=== PATIENT | female | born 1955 | race Caucasian/White ===

== ENCOUNTER 2017-11-01 21:51 | Inpatient (IN) | payer OTHER ==
[~2017-11-01] VITALS: Ht 157.5 cm; Wt 65.3 kg
[~2017-11-01 21:51] MED LIST: ALLERGY10 M1 PO; ASPIRIN81 M2 PO; ATIVAN0.5 MG PO; AUGMENTIN 875875 MG PO; CELEXA40 MG PO; ELEMENTAL CALC600 MG PO; FOLIC ACID1 MG PO; KEFLEX500 MG PO; LASIX 20 MG TAB20 MG PO; LORAZEPAM 1 MG T1 M1 PO; LOVASTATIN 20 M20 MG PO; OXYCODONE HCL 55 MG PO; POTASSIUM20 PO; PROBIOTIC1 EAC4 PO; PROTONIX40 M2 PO; TRAMADOL 50 MG50 MG PO; VITAMIN B-1100 M1 PO; WELLBUTRIN 75 M75 M1; WELLBUTRIN XL150 M1 PO
[2017-11-01 21:52] VITALS: BP 130/67
[2017-11-01] MEDS ORDERED: PROAIR HFA8.5 GM INH (22:01)
[2017-11-01 22:27] LABS: ABSOLUTE BASOPHILS 0.1 thou/uL (0.0-0.2); ABSOLUTE EOSINOPHILS 0.1 thou/uL (0.0-0.7); ABSOLUTE LYMPHOCYTES 4.5 thou/uL (0.8-5.3); ABSOLUTE MONOCYTES 0.5 thou/uL (0.0-1.2); ABSOLUTE NEUTROPHILS 2.7 thou/uL (1.6-8.1); BASOPHILS 0.7 %; HEMATOCRIT 49.5 % (37.0-47.0); HEMOGLOBIN 16.8 gm/dL (12.0-15.0); LYMPHOCYTES 56.6 %; MCH 37.5 pg (26.0-34.0); MCV 110.2 fL (80.0-100.0); MONOCYTES 6.9 %; MPV 10.4 fl. (7.2-11.1); NUCLEATED RBCS 0 /100WBC; PLATELET COUNT* 199 thou/uL (150-400); POLYS 34.8 %; RBC 4.49 mil/uL (4.20-5.00); RDW-CV 12.6 % (10.5-14.5); WBC 7.9 thou/uL (4.0-11.0)
[2017-11-01 22:30] LABS: ANION GAP 9 mmol/L (7-16); BUN 10 mg/dL (7-18); CALCIUM 8.6 mg/dL (8.5-10.1); CHLORIDE 105 mmol/L (98-107); CO2 30 mmol/L (21-32); CREATININE 0.9 mg/dL (0.6-1.3); GLUCOSE 124 mg/dL (70-99); POTASSIUM 4.1 mmol/L (3.5-5.1); SODIUM 144 mmol/L (136-145)
[2017-11-01 22:41] LABS: ALBUMIN 2.8 g/dL (3.4-5.0); ALKALINE PHOSPHATASE 135 U/L (46-116); LIPASE 378 U/L (73-393); MAGNESIUM 1.9 mg/dL (1.8-2.4); NT-PRO BRAIN NAT PEPTIDE 191 pg/mL (<300); SGOT 81 U/L (15-37); SGPT 63 U/L (30-65); TOTAL BILIRUBIN 0.1 mg/dL (<0.1-1.0); TOTAL PROTEIN 6.3 g/dL (6.4-8.2); TROPONIN-I LEVEL <0.06 ng/mL (<0.06)
[2017-11-01 22:52] LABS: PLATELET ESTIMATE ADEQUATE
[2017-11-01 22:52] LABS: BE 5.1 mmol/L (-2 to +3); HCO3 28.1 mmol/L (22.0-26.0); PCO2 36.4 mmHg (35.0-45.0); PO2 405.1 mmHg (75.0-100.0); pH 7.505 (7.340-7.450)
[2017-11-01 22:53] LABS: MACROCYTES 2+
[2017-11-02 02:40] VITALS: BP 118/74
[2017-11-02 02:58] VITALS: BP 116/76
[2017-11-02 03:30] LABS: URINE BILIRUBIN NEGATIVE (Negative); URINE BLOOD NEGATIVE (Negative); URINE CLARITY CLEAR; URINE COLOR YELLOW; URINE GLUCOSE-RANDOM NEGATIVE (Negative); URINE KETONES NEGATIVE (Negative); URINE LEUKOCYTES-REFLEX TRACE (Negative); URINE PROTEIN NEGATIVE (Negative); URINE UROBILINOGEN 0.2 E.U./dl (0.2-1.0)
[2017-11-02 03:37] LABS: URINE NITRITE-REFLEX POSITIVE (Negative)
[2017-11-02 03:38] LABS: AMP/METHAMP Negative (Negative); BARBITURATES Negative (Negative); BENZODIAZEPINES Negative (Negative); COCAINE Negative (Negative); HYALINE CASTS 0-3 Few /LPF (None Seen); METHADONE Negative (Negative); OPIATES Negative (Negative); PCP Negative (Negative); SQUAMOUS 4-10 Moderate /LPF (0-3); THC Negative (Negative)
[2017-11-02 03:39] LABS: BACTERIA-REFLEX >30 Many /HPF (None Seen); CRYSTALS None Seen /LPF (None Seen); URINE RBC None Seen /HPF (0-2); URINE WBC-REFLEX 6-15 Few /HPF (0-5)
--- NOTE | 2017-11-02 04:25 | NUR ---
ASSUMED CARE OF PT AT 0255. PT IS INTOXICATED. VSS. PERRLA. CIWA IS 0. NO COMPLAINTS OF PAIN. PT IS IN SINUS RYTHM ON THE TELEMETRY. PT IS RESTING COMFORTABLY IN BED. RESPIRATIONS ARE EVEN AND NONLABORED. WILL CONTINUE TO MONITOR PT.
[2017-11-02 08:30] VITALS: BP 136/90
--- NOTE | 2017-11-02 08:30 | NUR ---
ASSUMED PT. CARE AND RECEIVED REPORT AT 0730. PT A/OX4, VSS, MONITOR ON TRACING SR. PT. DENIES CURRENT PAIN WITH EXCEPTION OF HEADACHE. CIWAL SCORE OF 11 THIS MORNING DUE TO HEADACHE, VISIABLE TREMORS AND PT. REPORTS HALLUCINATING. ON 2L NC @ 99%, C/O SOA WITH ACTIVITY. FULL ASSESSMENT COMPLETED, REFER TO CHARTING. BANANA BAG INFUSING AT 100ML/HR TO RIGHT FOREARM. FULL ASSESSMENT COMPLETED, REFER TO CHARTING. CALL PRECAUTIONS IN PLACE, WILL CONTINUE WITH PLAN OF CARE.
[2017-11-02] MEDS ORDERED: PROBIOTIC1 EAC1 PO (09:02)
[2017-11-02 09:45] LABS: PROTIME 10.1 Seconds (9.20-11.50)
[2017-11-02 11:55] VITALS: BP 126/86
--- NOTE | 2017-11-02 14:12 | NUR ---
MET WITH PT AND SPOUSE TO DISCUSS HOME SITUATION/DC PLANNING. PT LIVES WITH SPOUSE AND 2 GRANDSONS, 17 AND 20. SHE IS INDEPENDENT AND ACTIVE. USES TOILET RISER. HAD STAY ON INPT REHAB LAST FALL, STATES DIDN'T F/U WITH OUTPT THERAPY AFTER. PT AND SPOUSE DENY ANY DC NEEDS. SHE DID ASK ABOUT GETTING A NEBULZIER, ENCOURAGED HER TO DISCUSS WITH DR. BARBRA ARZATE
[2017-11-02 15:36] VITALS: BP 132/92
--- NOTE | 2017-11-02 17:52 | EKG ---
[place] [address] ELECTROCARDIOGRAM REPORT Name: GANGA OLSON Room: [address] ADM IN M.R.#: [id number] Admission: 11/01/17 Attend Phys: Nohelia Thomas MD Discharge: Date of : 51 Report #: [id number] THIS REPORT FOR: //name// [facility] ED Test Date: 2017-11-01 Test Time: 22:00:42 Pat Name: GANGA OLSON Department: Room: [facility] Gender: F Heel Layer: : 1955 Requested By: Wayne Perez Order Number: [id number] MD: Brad Hernandez Measurements Intervals [place] Rate: 80 P: 68 VT: 185 QRS: 50 QRSD: 129 T: 70 QT: 404 QTc: 466 Interpretive Statements Sinus rhythm Baseline artifact noted Compared to ECG 09/10/2016 12:42:13 No significant changes noted Electronically Signed On 11-02-2017 17:52:44 CDT by Brad Hernandez [email or web address] <ELECTRONICALLY SIGNED> By: Brad Hernandez MD, [facility] 11/02/17 175 [id number] 99 Brad Hernandez MD, FAC /EPI
--- NOTE | 2017-11-02 19:48 | NUR ---
PT. STABLE THROUGH OUT SHIFT. CIWA SCORE 11 X3 TODAY. PT. TREATED WITH PO ATIVAN, TOLERATED WELL. HEADACHE TREATED WITH TYLENOL WITH PARTIAL RELIEF. PT. CAN BE IMPULSIVE AT TIMES, HOWEVER GENERALLY USES CALL LIGHT FOR ASSISTANCE AND ABLE TO STATE NEEDS. PT. INTO VISIT, APPEARS SUPPORTIVE OF PT AT THIS TIME. HOURLY ROUNDING COMPLETED THROUGH OUT THE DAY FOR PT. SAFETY.
[2017-11-02 20:00] VITALS: BP 149/100
--- NOTE | 2017-11-02 23:32 | NUR ---
PT ALERT CONFUSED CIWA LAST SCORE 27. PT GETTING OOB APPROX Q 10 MIN. ATTEMPTING TO REMOVE IV STATING IT WAS POKING HER. PT HAVING VISUAL AND AUDITORY HALLUCINATIONS. CRYING AND FEARFUL AT TIMES. TELEMETRY SHOWS SR. O2 AT 2 LITERS NC. D51/2 NS AT 100 ML. CHARGE NURSE AND HOUSE SUPP NOTIFIED. DR LARSEN NOTIFIED. PT TRANSFERED TO ICU FOR CIWA SCORE >26. IV ATIVAN GIVEN Q HR.
[2017-11-03] VITALS (17 sets, daily range): BP systolic 89–146; BP diastolic 45–93
--- NOTE | 2017-11-03 00:35 | NUR ---
PT TRANSFERED TO ICU 6. BELONGINGS WITH PT. REPORT CALLED TO RN. TELEMETRY SHOWS ST 110.
--- NOTE | 2017-11-03 06:00 | NUR ---
PATIENT SLOWLY PROGRESSING. TRANSFERED TO ICU FROM TELE @ 0140. CIWA WAS 26. PT HAVING HALLUCINATIONS CONSISTENTLY WAS TRYING TO GET OUT OF BED. HAD TO CALL SECURITY TWICE D/T PT BECOMING COMBATIVE. CALLED DR. LARSEN RECIEVED ORDERS FOR HALDOL Q4H. AFTER ADMINISTERED PT FELL ASLEEP AND HAS REMAIND ASLEEP SINCE. PT CIWA NOW IS 9 BUT ONLY B/C SHE IS SLEEPING. WILL CONTINUE TO MONITOR CLOSELY.
[2017-11-03 08:05] LABS: HEMOGLOBIN 14.9 gm/dL (12.0-15.0); MCH 37.4 pg (26.0-34.0); MCHC 33.9 g/dL (28.0-37.0); MCV 110.5 fL (80.0-100.0); MPV 10.5 fl. (7.2-11.1); NUCLEATED RBCS 0 /100WBC; PLATELET COUNT* 159 thou/uL (150-400); RBC 3.98 mil/uL (4.20-5.00); RDW-CV 12.8 % (10.5-14.5); WBC 7.9 thou/uL (4.0-11.0)
[2017-11-03 08:10] LABS: CALCIUM 8.6 mg/dL (8.5-10.1); CREATININE 0.9 mg/dL (0.6-1.3); MAGNESIUM 2.2 mg/dL (1.8-2.4); POTASSIUM 4.3 mmol/L (3.5-5.1)
--- NOTE | 2017-11-03 09:04 | NUR ---
ASSUMED PT CARE 0730. INITIAL CIWA 4. PT BECAME MORE AWAKE, PICKING AT IV, ATTEMPTING TO GET OUT OF BED, PULLING AT ARGUETA CATHETER, UNABLE TO SIT IN ONE AREA FOR MORE THAN 1 MINUTE. CIWA REASSSED AT 11. AUDITORY HALLUCINATIONS PRESENT, TREMORS. PT ALERT TO PERSON. VSS. AFEBRILE. BLOOD GLUCOSE 191. PT SAT UP IN CHAIR. PT ATE 50% OF BREAKFAST. MEDICATIONS ADMININSTERED PER SEP. POTASSIUM BROKEN IN HALF. PT REFUSED 2ND HALF OF PILL. SPOUSE AT BEDSIDE THIS AM. REPORTS PT HAD "THIS PROBLEM ABOUT A YEAR AGO". WHEN ASKED ABOUT PT'S ALCOHOL INTAKE RESPONSE WAS "APPARENTLY TOO MUCH". SPOUSE REPORTS PT NEEDING DRINK FIRST THING IN AM ON THURSDAY. PT REPORTS DRINKING ABOUT 4-5 SHOTS OF WHISKY FIREBALLS EVERY DAY. SPOUSE REPORTS IT IS "PROBABLY MORE". SPOUSE EXPRESSES CONCERN ABOUT NEEDING HELP WITH AND WONDERING IF REHAB MAY BE SOMETHING PT NEEDS. DISSCUSSED WITH SPOUSE PT'S DPOA, CURRENTLY PT DOES NOT HAVE ONE. CAN CONSIDER MAKING A DPOA WHEN PT ALERT AND COHERENT.
[2017-11-03 09:17] LABS: ABSOLUTE LYMPHOCYTES 0.2 thou/uL (0.8-5.3); ABSOLUTE MONOCYTES 0.2 thou/uL (0.0-1.2); ABSOLUTE NEUTROPHILS 7.6 thou/uL (1.6-8.1); ANISOCYTOSIS 1+; PLATELET ESTIMATE ADEQUATE; POIKILOCYTOSIS 1+
--- NOTE | 2017-11-03 10:00 | NUR ---
INTERDISCIPLINARY ROUNDS: PT TRANSFERRED TO ICU LAST NIGHT FOR ETOH WITHDRAWL. NO FAMILY HERE
--- NOTE | 2017-11-03 17:00 | NUR ---
LESLY'S CHARTED. PT HAS VISIBLE TREMORS. NAUSEA, AND VISUAL HALLUCINATIONS OF ALIENS PT RECEIVING PO ATIVAN. PT FOLLOWING DIRECTIONS THIS EVENING. PT C/O OF HEADACHE. NOTIFIED AND RECEIVED ONE TIME ORDER IBPROFEN. PT UP TO BSC 4 TIMES THIS SHIFT. NO BM. NUTRITION ENCOURAGED. BLOOD GLUCOSE IN 200'S AT LUNCH. NOTIFIED SLIDING SCALED ORDERED. BLOOD GLUCOSE IN 150'S NO INSULIN REQUIRED. PT EATING ABOUT 50% OF MEALS. PT SB HR OF [address] HR OF 104.
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
[2017-11-04] VITALS (10 sets, daily range): BP systolic 96–154; BP diastolic 57–84
[2017-11-04 04:15] LABS: ABSOLUTE LYMPHOCYTES 0.5 thou/uL (0.8-5.3); ABSOLUTE MONOCYTES 0.6 thou/uL (0.0-1.2); ABSOLUTE NEUTROPHILS 11.4 thou/uL (1.6-8.1); BASOPHILS 0.3 %; HEMATOCRIT 45.4 % (37.0-47.0); HEMOGLOBIN 14.8 gm/dL (12.0-15.0); LYMPHOCYTES 3.7 %; MCH 37.3 pg (26.0-34.0); MCHC 32.7 g/dL (28.0-37.0); MCV 114.1 fL (80.0-100.0); MONOCYTES 4.6 %; MPV 10.8 fl. (7.2-11.1); NUCLEATED RBCS 0 /100WBC; PLATELET COUNT* 145 thou/uL (150-400); POLYS 91.4 %; RBC 3.98 mil/uL (4.20-5.00); RDW-CV 12.8 % (10.5-14.5); WBC 12.5 thou/uL (4.0-11.0)
[2017-11-04 04:34] LABS: ALBUMIN 2.4 g/dL (3.4-5.0); CALCIUM 8.6 mg/dL (8.5-10.1); POTASSIUM 4.7 mmol/L (3.5-5.1); TOTAL BILIRUBIN 0.4 mg/dL (<0.1-1.0); TOTAL PROTEIN 5.4 g/dL (6.4-8.2)
--- NOTE | 2017-11-04 05:22 | NUR ---
PT NOT PROGRESSING TOWARD GOALS. PT REFUSES TO WEAR BP CUFF. PT CONTINUES TO MAKE THREATENING STATEMENTS TO NURSING STAFF. PT ABLE TO SLEEP WHEN GIVEN HALDOL, ATIVAN DOES NOT APPEAR TO HELP WITH ANXIETY.
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
--- NOTE | 2017-11-04 11:34 | NUR ---
BILATERAL SOFT LEG RESTRAINTS TAKEN OF AT 0830. BILATERAL SOFT WRIST RESTRAINTS IN PLACE. NUTRITION ENCOURAGED. PT ATE 5% OF BREAKFAST. FLUIDS ENCOURAGED. SITTER IN PLACE. LESLY KERN 18 THIS AM. PRN ATIVAN ADMININSTERED. SPOUSE AT BEDSIDE. PT APPEARS CALMER WITH PT AT BEDSIDE. PT TAKING PO MEDICATIONS.
--- NOTE | 2017-11-04 15:43 | NUR ---
CONSULTED TO PLACE MIDLINE FOR ICU PT WITH POOR IV ACCESS. SPOKE WITH PT AND ABOUT RISK AND BENEFIT. VOICED UNDERSTANDING AND AGREED. LEFT UPPER ARM ASSESSED WITH ULTRASOUND. LEFT BASILIC IDENTIFIED AND MARKED. SINGLE LUMAN POWER MIDLINE PLACED PER HOSPITAL PROTOCOL INCLUDING MAX BARRIER PRECAUTIONS. LINE TRIMMED TO 15CM AND ADVANCED TO 0CM. GOOD BRISK BLOOD RETURN NOTED AND FLUSHED WITH EASE. TOLERATED VERY WELL. PRIMARY NURSING NOTIFIED AND LINE RELEASED FOR USE.
--- NOTE | 2017-11-04 16:01 | NUR ---
WRIST RESTRAINTS TAKEN OFF AT 1348. PT SLEEPING THIS SHIFT. NO APPETITE FOR EATING.
--- NOTE | 2017-11-04 18:00 | NUR ---
PT A/O X'S 4 THIS EVENING. FORGETFUL. SPOUSE AT BEDSIDE. ATIVIAN GIVEN 2 TIMES THIS SHIFT.
[2017-11-05] VITALS (7 sets, daily range): BP systolic 103–143; BP diastolic 65–95
--- NOTE | 2017-11-05 05:06 | NUR ---
REPORT GIVEN TO KIRIT CARLIN. QUESTIONS DENIED. SITTER AT BEDSIDE IS PACKING UP BELONGINGS, AWAITING TRANSFER TO ROOM 201.
--- NOTE | 2017-11-05 05:48 | NUR ---
PT. TRANSFERRED TO ROOM 201 @ 0589.
--- NOTE | 2017-11-05 05:53 | NUR ---
pt transfered up to [facility] 201 from ICU at this time. C/o anxiety. Ativan given per protocol. NSR ON MONITOR. NO OTHER COMPLAINTS. ARGUETA DRAINING ADEQUATE. WILL CONT TO MONITOR.
--- NOTE | 2017-11-05 12:36 | NUR ---
PT CLEARED FOR D/C HOME WITH SPOUSE AND HOME [facility] FOR PHYSICAL THERAPY. IV REMOVED, PT BELONGINGS PACKED. PT EDUCATED ON ALL DISCHARGE INSTRUCTIONS. PRESCRIPTIONS GIVEN WITH CARE NOTE EDUCATION, REVIEWED AND QUESTIONS ANSWERED. PT ESCORTED VIA W/C WITH NURSING STAFF TO SPOUSE IN CAR. DISCHARGE COMPLETED AT 1240.
--- NOTE | 2017-11-05 16:51 | NUR ---
PT RESTING IN BED MOST OF SHIFT. PT A&OX4,CALM AND COOPERATIVE. TOLERATING PO WELL. ALCOHOL WITHDRAWAL SYMPTOMS MONITORED.
[2017-11-06] VITALS (7 sets, daily range): BP systolic 113–165; BP diastolic 71–96
[2017-11-06 05:10] LABS: ABSOLUTE LYMPHOCYTES 0.6 thou/uL (0.8-5.3); ABSOLUTE MONOCYTES 0.2 thou/uL (0.0-1.2); ABSOLUTE NEUTROPHILS 6.1 thou/uL (1.6-8.1); BASOPHILS 0.2 %; HEMATOCRIT 47.3 % (37.0-47.0); HEMOGLOBIN 16.2 gm/dL (12.0-15.0); LYMPHOCYTES 8.9 %; MCH 37.4 pg (26.0-34.0); MCHC 34.2 g/dL (28.0-37.0); MCV 109.3 fL (80.0-100.0); MONOCYTES 2.3 %; MPV 11.4 fl. (7.2-11.1); NUCLEATED RBCS 0 /100WBC; PLATELET COUNT* 129 thou/uL (150-400); POLYS 88.6 %; RBC 4.33 mil/uL (4.20-5.00); RDW-CV 12.6 % (10.5-14.5); WBC 6.9 thou/uL (4.0-11.0)
--- NOTE | 2017-11-06 05:30 | NUR ---
ASSUMED CARE OF PT AT 1915. NURSING ASSESSMENT COMPLETED AT START OF SHIFT. PT VOICED NO CONCERNS, TRACING SINUS RHYTHM ON TOOL AND DIE DESIGNER, HOURLY ROUNDING COMPLETED, FALL PRECAUTIONS IN PLACE, ALCOHOL WITHDRAWAL SYMPTOMS MONITORED, PT RESTED THROUGHOUT THE NIGHT. CALL LIGHT WITHIN REACH.
[2017-11-06 06:03] LABS: ALBUMIN 2.6 g/dL (3.4-5.0); CALCIUM 9.2 mg/dL (8.5-10.1); CREATININE 0.9 mg/dL (0.6-1.3); MAGNESIUM 1.7 mg/dL (1.8-2.4); POTASSIUM 4.5 mmol/L (3.5-5.1); TOTAL BILIRUBIN 0.5 mg/dL (<0.1-1.0); TOTAL PROTEIN 5.4 g/dL (6.4-8.2)
--- NOTE | 2017-11-06 10:06 | NUR ---
ASSUMED CARE OF PT AT 0730. PT RESTING IN BED WAITING FOR BREAKAST. PT A&0X4. PT COMPLAINS OF HEADACHE- TREATED WITH PRN PO ATIVAN WITH PARTIAL RELIEF. PT TRACING SR ON THE TOOL POLISHING MACHINE OPERATOR. BILATERAL LE EDEMA NOTED. ELEVATED BNP NOTED. PT ON 4L NC SAT 96%. PT DENIES ANY SHORTNESS OF BREATH AT REST. PT STATES SHORTNESS OF BREATH WITH ACTIVITY. PT UP WITH 1 ASSIST TO BSC, UNSTEADY AT TIMES. LESLY COMPLETED Q4H- PT SCORING 6. PT GOAL FOR TODAY IS TO WORK WITH PHYSICAL THERAPY TO INCREASE STRENGTH, REPLACE MAGNESIUM PER ELECTROLYTE PROTOCOL, AND MONITOR OXYGENATION AND ALCOHOL WITHDRAWAL. AT BEDSIDE THIS AM. AM ASSESSMENT CHARTED. MEDICATIONS PER SEP. PT REPOSITIONS SELF IN BED WITH REMINDERS. HOURLY ROUNDING OBSERVED. BED IN LOW POSITION. BED ALARM IN PLACE. FALL PRECAUTIONS IN PLACE. CALL LIGHT WITHIN REACH. WILL CONTINUE PLAN OF CARE.
--- NOTE | 2017-11-06 18:51 | NUR ---
NO ACUTE CHANGES THROUGHOUT SHIFT. REFER TO CHARTING. CIWA COMPLETED Q2-4 HOURS. PT SCORING 6-8, TREATED WITH PO ATIVAN. REFER TO EMAR. PT COMPLAINED OF HEADACHE AND ANXIETY. PT WORKED WITH PHYSICAL THERAPY TODAY, PT GOT TEARFUL BUT TOLERATED WELL. PT SAT UP IN RECLINER THROUGHOUT AFTERNOON. PT CONTINUES TO TRACE SR ON THE HAND ORNAMENT MAKER. ON 4L NC SAT UPPER 90'S. PT UP WITH 1 ASSIST TO BSC, UNSTEADY AT TIMES. AT BEDSIDE THROUGHOUT SHIFT. MAGNESIUM REPLACED PER ELECTROLYTE PROTOCOL. REFER TO EMAR. MEDICATIONS PER MAR. PT REPOSITIONS SELF IN BED WITH REMINDERS. HOURLY ROUNDING OBSERVED. BED IN LOW POSITION. BED/CHAIR ALARM IN PLACE. FALL PRECAUTIONS IN PLACE. CALL LIGHT WITHIN REACH. WILL CONTINUE PLAN OF CARE.
[2017-11-07 03:49] VITALS: BP 145/94
--- NOTE | 2017-11-07 04:55 | NUR ---
PT IS ABLE TO COMMUNICATE HER NEEDS TO STAFF EFFECTIVELY. SHE HAS DENIED THE NEED FOR PAIN MEDICATION UP TO THIS TIME. CIWA PROTOCOL MAINTAINED; SCORE HAS DECREASED SINCE THE BEGINNING OF THIS SHIFT, UP TO THIS TIME. SHE IS PROGRESSING TOWARDS CARE PLAN GOALS. LEFT UPPER ARM MIDLINE IV ACCESS IS PATENT UP TO THIS TIME.
[2017-11-07 05:28] LABS: HEMATOCRIT 43.5 % (37.0-47.0); HEMOGLOBIN 14.9 gm/dL (12.0-15.0); MCH 37.5 pg (26.0-34.0); MCHC 34.3 g/dL (28.0-37.0); MCV 109.3 fL (80.0-100.0); MPV 11.3 fl. (7.2-11.1); NUCLEATED RBCS 0 /100WBC; PLATELET COUNT* 135 thou/uL (150-400); RBC 3.98 mil/uL (4.20-5.00); RDW-CV 12.6 % (10.5-14.5); WBC 9.7 thou/uL (4.0-11.0)
[2017-11-07 06:20] LABS: ALBUMIN 2.5 g/dL (3.4-5.0); CALCIUM 9.4 mg/dL (8.5-10.1); CREATININE 0.8 mg/dL (0.6-1.3); MAGNESIUM 1.7 mg/dL (1.8-2.4); POTASSIUM 4.7 mmol/L (3.5-5.1); TOTAL BILIRUBIN 0.4 mg/dL (<0.1-1.0); TOTAL PROTEIN 5.3 g/dL (6.4-8.2)
[2017-11-07 06:33] LABS: ABSOLUTE LYMPHOCYTES 0.8 thou/uL (0.8-5.3); ABSOLUTE NEUTROPHILS 8.9 thou/uL (1.6-8.1); ANISOCYTOSIS 1+; PLATELET ESTIMATE DECREASED; POIKILOCYTOSIS 1+
[2017-11-07 08:00] VITALS: BP 124/89
--- NOTE | 2017-11-07 09:00 | NUR ---
ASSUMED CARE OF PT AT 0730. PT RESTIN IN BED WAITING FOR BREAKFAST. PT A&0X4, FORGETFUL AT TIMES. PT COMPLAINS OF PAIN TO HEAD. DR PACK HERE TO SEE PT. ORDERS RECEIVED FOR OXY 5MG Q6H PRN PAIN. PT GIVEN WITH RELIEF. REFER TO EMAR. CIWA COMPLETED QH4. REFER TO CHARTING. TREATED WITH PO ATIVAN 2MG. PT TRACING SR ON THE AGENCY SALES DIRECTOR. ON 2L NC SAT UPPER 90'S. DENIES ANY SHORTNESS OF BREATH. PT UP WITH 1 ASSIST BATHROOM. MAGNESIUM REDRAW BACK AT 2.5. PT GOAL FOR TODAY IS PAIN AND ANXIETY MGMT, INCREASE ACTIVITY AND UP TO CHAIR FOR MEALS. AM ASSESSMENT CHARTED. MEDICATIONS PER MAR. PT REPOSITIONS SELF. HOURLY ROUNDING OBSERVED. BED IN LOW POSITION. BED ALARM IN PLACE. FALL PRECAUTIONS IN PLACE. CALL LIGHT WITHIN REACH. WILL CONTINUE PLAN OF CARE.
[2017-11-07 12:14] VITALS: BP 140/92
--- NOTE | 2017-11-07 13:06 | NUR ---
SW met with pt to provide alcohol treatment options referral list and emotional support resources. Pt and grandson were visiting pt. Pt was tearful and said that she was not have a good day. Pt and pt receptive to the resources. Pt wondered if she could have a nebulizer at dc. SW explained SW could look into order for nebulizer and arrange upon dc if needed. Pt said she thinks she will be going to the 3rd floor before dc. SW to continue to follow to assist with safe dc planning.
[2017-11-07 15:21] VITALS: BP 137/88
--- NOTE | 2017-11-07 17:49 | NUR ---
NO ACUTE CHANGES THROUGHOUT SHIFT. REFER TO CHARTING. AT BEDSIDE THROUGHOUT SHIFT. PT TREATED FOR ANXIETY WITH PO ATIVAN. REFER TO EMAR. PT UP TO RECLINER FOR MEALS, TOLERATED WELL. PT UP WITH 1 ASSIST TO BATHROOM. PT CONTINUES TO TRACE SR ON THE FRANCHISE SALES DIRECTOR. ON 2L NC SAT UPPER 90'S. DENIES ANY SHORTNESS OF BREATH. CIWA COMPLETED Q4H. REFER TO CHARTING. PT SCORING BETWEEN 6-8. PT SLOWLY PROGRESSING TOWARDS GOALS. POSSIBLE DISCHARGE TO REHAB THURSDAY 11/09. MEDICATIONS PER SEP. PT REPOSITIONS SELF WITH REMINDERS. HOURLY ROUNDING OBSERVED. BED IN LOW POSITION. BED/ JAG ALARM IN PLACE. FALL PRECAUTIONS IN PLACE. CALL LIGHT WITHIN REACH. WILL CONTINUE PLAN OF CARE.
[2017-11-07 20:09] VITALS: BP 169/100
[2017-11-08] VITALS: BP 147/96
[2017-11-08 04:00] VITALS: BP 119/75
--- NOTE | 2017-11-08 07:14 | NUR ---
PT IS ABLE TO COMMUNICATE HER NEEDS TO STAFF EFFECTIVELY. CURRENT PAIN MEDICATION REGIMEN HAS BEEN ADEQUATE FOR CONTROLLING HER PAIN UP TO THIS TIME. CIWA PROTOCOL MAINTAINED. POSSIBLE DISCHARGE TOMORROW.
[2017-11-08 08:00] VITALS: BP 131/80
--- NOTE | 2017-11-08 11:45 | NUR ---
ASSUMED CARE OF PT AT 0730. PT RESTING IN BED WAITING FOR BREAKFAST. PT A&0X4. COMPLAINS OF PAIN TO HEAD 03/29. TREATED WITH PRN OXY WITH PARTIAL RELIEF. PT TRACING SR ON THE SURGICAL RESIDENT. PT ON 2L NC SAT UPPER 90'S. DENIES ANY SHORTNESS OF BREATH. DR PACK HERE TO SEE PT. REHAB CONSULT IN PLACE. POSSIBLE DISCHARGE TO REHAB TOMORROW, 11/09 PENDING CONSULT AND ACCEPTANCE. CIWA COMPLETED Q4H. PT SCORING BETWEEN 6-8. TREATED WITH PO ATIVAN. REFER TO EMAR. PT UP WITH 1 ASSIST TO BSC, UNSTEADY AT TIMES. AM ASSESSMENT CHARTED. MEDICATIONS PER SEP. PT REPOSITIONS SELF. HOURLY ROUNDING OBSERVED. BED IN LOW POSITION. BED ALARM IN PLACE. FALL PRECAUTIONS IN PLACE. CALL LIGHT WITHIN REACH. WILL CONTINUE PLAN OF CARE.
[2017-11-08 12:20] VITALS: BP 133/85
[2017-11-08 16:58] VITALS: BP 136/93
--- NOTE | 2017-11-08 19:02 | NUR ---
NO ACUTE CHANGES THROUGHOUT SHIFT. REFER TO CHARTING. PT COMPLAINED OF PAIN TO HEAD. TREATED WITH PRN OXY WITH PARTIAL RELIEF. PT TREATED FOR ANXIETY WITH PO ATIVAN. CIWA'S COMPLETED Q4H. REFER TO CHARTING. POSSIBLE DISCHARGE TO REHAB TOMORROW 11/09. PT AMBULATED IN HALLWAY WITH NURSING STAFF, TOLERATED WELL. CONTINUES TO TRACE SR ON THE DAMPPROOFER. ON 2L NC SAT UPPER 90'S. DENIES ANY SHORTNESS OF BREATH. PT UP WITH 1 ASSIST, UNSTEADY AT TIMES. AT BEDSIDE THIS AFTERNOON. MEDICATIONS PER SEP. PT REPOSITIONS SELF. HOURLY ROUNDING OBSERVED. BED IN LOW POSITION. BED ALARM IN PLACE. FALL PRECAUTIONS IN PLACE. CALL LIGHT WITHIN REACH. WILL CONTINUE PLAN OF CARE.
[2017-11-08 19:40] VITALS: BP 128/94
[2017-11-09] VITALS: BP 144/61
[2017-11-09 04:00] VITALS: BP 123/75
--- NOTE | 2017-11-09 04:14 | NUR ---
END SHIFT: CIWA = 8. NO CHANGES. REQUIRING ATIVAN FEQUENTLY. PT IS ANXIOUS WITH TREMORS AND RINALDI. NSR ON MONITOR. REMAINS ON 2L NC. AWAITING DC TO REHANB TOM. ASSESSMENT UNCHANGED. VSS. SAFETY PRECAUTIONS IN PLACE. CALL LIGHT IN REACH. PERFORMED HOURLY ROUNDING. WILL CONT TO MONITOR.
[2017-11-09 08:02] VITALS: BP 142/87
--- NOTE | 2017-11-09 09:45 | NUR ---
Spoke with Dr Brizuela, Pt should be ready to dc tomorrow to either acute rehab or snf. CM messaged rehab therapy manager, Kym, to see if they will be able to accept Pt, awaiting for decision to accept. CM to discuss skilled options with Pt. Following.
--- NOTE | 2017-11-09 09:49 | NUR ---
ASSUMED CARE OF PT THIS AM AROUND 0715- DELIVERY DRIVER/CUSTOMER SERVICE IN PLACE ORDERED, TRACING SR- UPON ASSESSMENT PT NOTED TO BE SITTING UP IN BED, WATCHING TV- PT A&O X4, SLIGHTLY ANXIOUS- CONTINENT OF BOWEL AND BLADDER, USING BED SIDE COMMODE- SBA WITH TRANSFERS FOR SAFETY- DIMINISHDE LUNG SOUNDS NOTED, RESP EVEN AND UN-LABORED- VSS, O2 SAT 99% ON 2L VIA NC- ABDOMEN SOFT/ROUND/NON-TENDER, BS X4 QUADS- LAST BM REPORTED 11/08/17- TRACE EDEMA NOTED TO BLE- LUE PICC NOTED C/D/I, DRESSING IN PLACE WITH S/S INFECTION NOTED- IV ABT CHANGED TO PO THIS AM- CIWA CHECKS IN PLACE INDICATED, NOTED TO BE 8 THIS AM, PRN ATIVAN GVIEN THIS AM PER PT REQUEST AT 0904- GOOD PO INTAKE NOTED THIS AM WITH BREAKFAST- POSSIBLE D/C TO REHAB PENDING APPROVAL THIS AM- CALL LIGHT AND PERSONAL BELONGINGS WITH IN REACH- HOURLY ROUNDS IN PLACE R/T SAFETY/NEEDS- ALL NEEDS MET AT THIS TIME-WCTM
--- NOTE | 2017-11-09 10:18 | NUR ---
RECEIVED CONSULT FOR POSSIBLE REHAB ADMISSION. CONSULT HAS BEEN ACKNOWLEDGED BY EMBEDDED DEVELOPER AND DR. JUDGE. PATIENT ADMITTED WITH [id number] RESP FAILURE. PT HAS EVALUATED, HAVE REQUESTED OT AND ST ORDERS FOR EVALUATIONS BE PLACED. WILL NEED PENDING THERAPY EVALUATIONS TO DETERMINE IF PATIENT QUALIFIES FOR ACUTE REHAB. THANK YOU FOR THIS CONSULT.
[2017-11-09 11:35] VITALS: BP 99/66
--- NOTE | 2017-11-09 13:53 | NUR ---
Nutrition: Pt admitted with SOA. Assessed for LOS. H/o ETOH, pancreatitis, COPD, CHF. REgular diet. Wt is in usual range, 144#. She is awaiting approval for Rehab. BG 137, alb 2.5, prealb 22.7. MVI is ordered for pt. No nutrition interventions are needed at this time. Will follow pt on Rehab unit.
--- NOTE | 2017-11-09 16:12 | NUR ---
PT KHRIS RESTING IN BED, WATCHING TV- CUSTOMER ACCOUNT REPRESENTATIVE IN PLACE ORDERED, TRACING SR- SINGLE LUMEN PICC CONTINUED TO LEFT UE AND SL- CIWA CONTINUED THIS SHIFT SCHEDULED, NOTED AT 9 WITH VIAIBLE TREMORS NOTED- PRN ATIVAN GIVEN THIS SHIFT PER PT REQUEST- PRN OXY IR X2 THIS SHIFT, PT REPORTS MEDICATIONS TO BE EFFECTIVE- PT UP WORKING WITH THERAPIES PRESCIBED- UP WALKIN HALLWAY WITH PT AND TOLERATING WELL- GOOD PO INTAKE NOTED WITH MEALS- CALL LIGHT AND PERSONAL BELONGINGS WITH IN REACH- PT MAKES NEEDS KNOWN- ALL NEEDS MET AT THIS TIME-WCTM
[2017-11-09 19:35] VITALS: BP 137/87
[2017-11-10] VITALS (8 sets, daily range): BP systolic 115–147; BP diastolic 75–96
--- NOTE | 2017-11-10 04:13 | NUR ---
END SHIFT: PT RESTED WELL. C/O PAIN IN HEAD AND ANXIETY. CIWA CURRENTLY AT 9. NSR ON MONITOR. REMAINS ON 2L NC. WEAK WHEN UP AND MOVING AROUND. AWAITING DC TO REHAB. ASSESSMENT UNCHANGED. VSS. WILL CONT TO MONITOR.
--- NOTE | 2017-11-10 08:47 | NUR ---
ASSUMED CARE OF PT THIS AM AROUND 0715- INSURANCE VERIFICATION CLERK IN PLACE ORDERED, TRACING SR- UPON ASSESSMENT PT NOTED MTO BE RESTING IN BED SIDE RECLINER WATCHING TV- PT A&O X4 WITH FORGETFULLNESS- CONTINENT OF BOWEL AND BLADDER, USING BED SIDE COMMODE- DIMINISHED LUNG SOUNDS, RESP EVEN AND UN-LABORED- VSS, O2 SAT 100% ON 2L, O2 TITRATED TO 1L THIS AM- ABDOMEN SOFT/ROUND/NON-TENDER, BS X4 QUADS- PT REPORTS BM 11/09/17- LUE PICC INTACT, DRESSING C/D/I, WITH NO S/S INFECTION NOTED- CIWA IN PLACE ORDERED NOTED AT 9- ATIVAN GIVEN THIS AM PER PT REQUEST- GOOD PO INTAKE NOTED THIS AM WITH BREAKFAST- CALL LIGHT AND PERSONAL BELONGINGS WITH IN REACH- HOURLY ROUNDS IN PLACE R/T SAFETY/NEEDS- ALL NEEDS MET AT THIS TIME-WCTM
--- NOTE | 2017-11-10 11:18 | NUR ---
CONTINUING TO FOLLOW PATIENT ALONG WITH DR. JUDGE. OT AND ST EVALUATIONS COMPLETE PT ALSO SEEING PATIENT. PATIENT HAS DEFINATE REHAB NEEDS AND WOULD BENEFIT FROM SHORT ACUTE REHAB STAY PRIOR TO DISCHARGE HOME. HAVE INITIATED INSURANCE AUTHORIZATION REQUEST. WILL PLAN TO ADMIT TO ACUTE REHAB PENDING INSURANCE AUTH. NOTIFIED [facility] OF TENTATIVE ACCEPTANCE.
[2017-11-10] MEDS ORDERED: OXYCODONE HCL 55 MG PO (14:31)
[2017-11-10] MEDS ORDERED: PRENATAL PO (14:32)
[2017-11-10] MEDS ORDERED: AUGMENTIN 875-1 EACH PO (14:33)
--- NOTE | 2017-11-10 17:58 | NUR ---
PT KHRIS RESTING IN BED- MS STATUS NOTED- REHAB STILL PENDING INSURANCE AUTHORIZATION AT THIS TIME- PT UP TO CHAIR WITH MEALS THIS SHIFT, TOLERATING WELL- WORKING WITH THERAPIES PRESCIBED- O2 TITRATED OFF, PT KHRIS ON RA SAT 95%- PRN ATIVAN PER REQUEST, CIWA CONTINUED THIS SHIFT INDICATED NOTED AT 9- PRN OXY REQUEST R/T HEADACHE THIS SHIFT, PT REPORTS MEDICATION TO BE EFFECTIVE- CALL LIGHT AND PERSONAL BELONGINGS WITH IN REACH- ALL NEEDS MET AT THIS TIME-WCTM
[2017-11-11] VITALS: BP 142/96
--- NOTE | 2017-11-11 04:38 | NUR ---
PATIENT PROGRESSING TOWARDS GOALS: CIWA IMPROVING THROUGHOUT SHIFT AND PATIENT HAVING POSITIVE RESPONSIVE TO PO ATIVAN. PATIENT HAS CONTINUOUS C/O OF A HEADACHE, PARTIALLY RELIEVED WITH OXYCODONE. PATIENT UP TO BATHROOM WITH STANDBY ASSIST, COMPLIANT WITH FALL PRECAUTIONS. HOURLY ROUNDING OBSERVED. CALL LIGHT WITHIN REACH
[2017-11-11 08:11] VITALS: BP 127/90
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
[2017-11-11 09:13] LABS: ABSOLUTE BASOPHILS 0.1 thou/uL (0.0-0.2); ABSOLUTE LYMPHOCYTES 3.4 thou/uL (0.8-5.3); ABSOLUTE MONOCYTES 1.2 thou/uL (0.0-1.2); BASOPHILS 0.8 %; EOSINOPHILS 0.4 %; HEMATOCRIT 45.6 % (37.0-47.0); HEMOGLOBIN 15.5 gm/dL (12.0-15.0); LYMPHOCYTES 34.8 %; MCH 36.7 pg (26.0-34.0); MCV 108.1 fL (80.0-100.0); MONOCYTES 12.8 %; MPV 10.5 fl. (7.2-11.1); NUCLEATED RBCS 0 /100WBC; PLATELET COUNT* 221 thou/uL (150-400); POLYS 51.2 %; RBC 4.21 mil/uL (4.20-5.00); RDW-CV 12.8 % (10.5-14.5); WBC 9.7 thou/uL (4.0-11.0)
[2017-11-11 09:32] LABS: ALBUMIN 2.9 g/dL (3.4-5.0); CALCIUM 9.7 mg/dL (8.5-10.1); CREATININE 0.9 mg/dL (0.6-1.3); POTASSIUM 4.3 mmol/L (3.5-5.1); TOTAL BILIRUBIN 0.2 mg/dL (<0.1-1.0); TOTAL PROTEIN 6.5 g/dL (6.4-8.2)
--- NOTE | 2017-11-11 14:43 | NUR ---
Insurance authorized rehab stay. Faxed dc orders. Updated nurse. Rehab to call unit when they are ready to receive Pt. Pt updated.
[2017-11-11] MEDS ORDERED: TOPAMAX 25 MG T25 M1 PO (15:01)
[2017-11-11] MEDS ORDERED: NICOTINE TRANSD21 M1 TOP (15:18)
[2017-11-11 15:19] VITALS: BP 117/87
[2017-11-11] MEDS ORDERED: ATIVAN1 MG PO (15:19)
[2017-11-11] MEDS ORDERED: DUONEB 2.5-0.5 M3 ML INH (15:25)
--- NOTE | 2017-11-11 15:26 | NUR ---
PT ACCEPTED TO REHAB. PT INFORMED. PICC LINE REMOVED. PRESSURE HELD. DISCHARGE ORDERS COMPLETED. PERSONAL BELONGINGS GATHERED AND SENT WITH PT. PT ESCORTED OF FUNIT WITH QA TEST LEAD. REPORT CALLED TO REHAB.
--- NOTE | 2017-11-18 14:26 | CON ---
[address] [address] CONSULTATION Name: GANGA OLSON Room: [address] IN ..#: [id number] Admission: 11/01/17 Attend Phys: Nohelia Thomas MD Discharge: 11/11/17 Date of : 51 Report #: [id number] THIS REPORT FOR: //name// CC: Florian Thomas REASON FOR CONSULTATION: Evaluation and recommendations regarding post-acute rehabilitation in a 61-year-old female who is known to this service from previous admission in consultation. She was admitted on 11/01/2017 with hypoxia, intoxication, became dyspneic, desaturated, was put on BiPAP and admitted. She was watched closely for alcohol intoxication and withdrawal. Previous level of function is independent to modified independent with activities of daily living. She does use a toilet riser but otherwise is independent. Currently, occupational therapy is supervision with activities of daily living and physical therapy is modified independent to minimum assistance, walking and ambulating 100 feet. Speech language pathology as she has mild issues with expression and comprehension. ALLERGIES: MEPERIDINE. PAST MEDICAL HISTORY: Hypertension, CHF, hiatal hernia, UTI, PUD, alcohol abuse, pancreatitis, neuropathy, history of falls, smoker, anxiety. PAST SURGICAL HISTORY: Total abdominal hysterectomy. MEDICATIONS: Reviewed and are available in the MAR. FAMILY HISTORY: Hypertension. SOCIAL HISTORY: She does utilize some marijuana, is an everyday smoker, 1 pack per day and drinks 5-6 shots daily. REVIEW OF SYSTEMS: A 14-point review of systems is done and is negative except as mentioned in the HPI, specifically no fever, chest pain, shortness of breath or abdominal pain. PHYSICAL EXAMINATION: GENERAL: Alert, oriented, in no apparent distress. VITAL SIGNS: Reviewed and are stable. HEENT: Head atraumatic, normocephalic. Pupils equal, round, reactive. ABDOMEN: Soft, nontender, nondistended. NEUROLOGIC: Cranial nerves 2-12 are grossly intact, with no focal neuro deficits. ASSESSMENT: 1. Acute hypoxic respiratory failure, now stable, pneumonitis with possible aspiration pneumonia, [place] [address] CONSULTATION Name: OLSONGANGA TINEO Daphney Room: [address]#: [id number] Admission: 11/01/17 Attend Phys: Nohelia Thomas MD Discharge: 11/11/17 Date of : 51 Report #: [id number] 2. Alcohol intoxication and withdrawal. 3. Chronic obstructive pulmonary disease exacerbation. 4. Anxiety. 5. History of pancreatitis. 6. History of congestive heart failure. PLAN: 1. She is currently at supervision to minimum level of assistance. She likely will need further physical and occupational therapy and maybe some ongoing speech and language pathology. 2. Recommend continued rehabilitation. 3. We will follow. <ELECTRONICALLY SIGNED> By: Livia Santa DO 11/18/17 1426 [id number] steve Manning
== END 2017-11-11 15:50 | DRG 177 ==
LOC: M.ERS 21:51 → M.TBA-ER 23:16 → M.2W 23:16 → M.ICU 23:16 → M.2W 11-02 00:21 → M.ICU 11-03 00:33 → M.2W 11-05 04:50
PROVIDERS: Emergency Medicine Emergency Medical Services; Internal Medicine; ADMIT Internal Medicine
PROC: 05HB33Z Insertion of Infusion Device into Right Basilic Vein, Percutaneous Approach (ICD-10-PCS; principal; 2017-11-04)
DX: J69.0 Pneumonitis due to inhalation of food and vomit (principal); J96.01 Acute respiratory failure with hypoxia; J44.1 Chronic obstructive pulmonary disease with (acute) exacerbation; F10.231 Alcohol dependence with withdrawal delirium; N39.0 Urinary tract infection, site not specified; Y90.8 Blood alcohol level of 240 mg/100 ml or more; I11.0 Hypertensive heart disease with heart failure; I50.9 Heart failure, unspecified; F41.9 Anxiety disorder, unspecified; B96.20 Unspecified Escherichia coli [E. coli] as the cause of diseases classified elsewhere; F17.210 Nicotine dependence, cigarettes, uncomplicated; Z90.710 Acquired absence of both cervix and uterus; Z90.79 Acquired absence of other genital organ(s); Z90.722 Acquired absence of ovaries, bilateral; Z79.899 Other long term (current) drug therapy; Z88.8 Allergy status to other drugs, medicaments and biological substances; Z82.49 Family history of ischemic heart disease and other diseases of the circulatory system

== ENCOUNTER 2017-11-11 15:01 | Inpatient (IN) | payer OTHER ==
[~2017-11-11] VITALS: Ht 157.5 cm; Wt 56.2 kg
[~2017-11-11 15:01] MED LIST changes: +AUGMENTIN 875-1 EACH PO; +PRENATAL PO; +PROAIR HFA8.5 GM INH; +PROBIOTIC1 EAC1 PO; +TOPAMAX 25 MG T25 M1 PO
[2017-11-11] MEDS ORDERED: NICOTINE TRANSD21 M1 TOP (15:18)
[2017-11-11] MEDS ORDERED: ATIVAN1 MG PO (15:19)
[2017-11-11] MEDS ORDERED: DUONEB 2.5-0.5 M3 ML INH (15:25)
[2017-11-11 15:30] VITALS: BP 128/88
--- NOTE | 2017-11-11 18:54 | NUR ---
PATIENT ADMITTED TO ROOM 325 FROM TELE UNIT, PATIENT ALERT/ORIENTED, ORDERS RECIEVED FROM DR JUDGE, PATIENT ORIENTED TO ROOO AND UNIT. TO DINING ROOM FOR DINNER TONIGHT. BED/CHAIR ALARMS IN PLACE, CALL LIGHT IN REACH. ASSESSMENT COMPLETED AND PAPERWORK SIGNED
[2017-11-11 20:14] VITALS: BP 158/100
--- NOTE | 2017-11-12 00:46 | NUR ---
ASSUMED CARE AT 1930. PATIENT S/P COPD EXACERBATION. RESTING IN BED AT BEGINNING OF SHIFT. INSTRUCTED IN FALL PRECAUTIONS, TO USE CALL LITE BEFORE GETTING UP. UP WITH ONE, GAIT BELT. INITIALLY REFUSED WALKER, STATED THEY DIDN'T USE WALKER ON PRIOR FLOOR, BUT LATER STATED SHE WAS USING WALKER. WALKER OBTAINED. VOIDS PER TOILET, ABLE TO DO HYGIENE AND CLOTHING ADJUSTMENTS. TAKES PILLS WHOLE WITH WATER. DEMANDED PAIN AND NERVE PILLS DESPITE EDUCATION THAT AT THAT TIME SHE HAD ONLY HAD THEM 1.5 HOURS BEFORE. REINFORCED TIME SCHEDULE FOR MEDS. BED ALARM ON. HEARD IT SOUNDING, FOUND PATIENT STANDING AT SIDE OF BED ATTEMPTING TO ADJUST FAN. THIS NURSE ADJUSTED FAN AFTER GETTING PATIENT BACK INTO BED, WITH REPEATED INSTRUCTIONS NOT TO GET UP WITHOUT OUR HELP. LIKES FAN TO BE BLOWING DIRECTLY ON HER FULL BLAST. PATIENT ABLE TO PUT ON HER GRIPPER SOCKS HERSELF, AND AFTER 2200 STARTED THAT TASK SOON SHE PUT ON HER CALL LITE TO SPEED UP GETTING TO TOILET. FORGETFUL, BUT MORE COMPLIANT SHIFT PROGRESSED THUS FAR. WANTED TO KEEP NICOTINE PATCH ON THROUGH NIGHT. DRESSING C/D/I TO LT ARM WHERE PICC LINE WAS, PATIENT WANTED DRESSING OFF, BUT THIS NURSE EDUCATED PATIENT ON NEED TO KEEP IT ON FOR LONGER TO PREVENT INFECTION, PATIENT VERBALIZED UNDERSTANDING AND COMPLIED. HOURLY ROUNDS CONTINUE. BED ALARM ON. CALL LITE IN REACH.
--- NOTE | 2017-11-12 06:03 | NUR ---
SLEPT OFF AND ON THROUGH THE NIGHT. MEDICATED FOR HEADACHE RECENTLY. TURNS SELF, ABLE TO RISE AND GET IN AND OUT OF BED EASILY. VOIDS PER TOILET. STATES HEADACHE IS A 10. INSTRUCTED HER IN NEW MED OF TOPIMAX AND THAT HER OXY IS ONLY ORDERED FOR ONE WEEK AT THIS TIME. PATIENT WANTS HER ATIVAN TO BE 2 MG NOT ONE, DISCUSSION ABOUT OVER DROWSY WOULD INTERFERE WITH THERAPIES. SHE WILL DISCUSS WITH PHYSICIANS. HOURLY ROUNDS CONTINUE. BED ALARM ON. CALL LITE IN REACH.
[2017-11-12 07:42] LABS: HEMATOCRIT 49.6 % (37.0-47.0); HEMOGLOBIN 16.4 gm/dL (12.0-15.0); MCH 36.6 pg (26.0-34.0); MCHC 33.1 g/dL (28.0-37.0); MCV 110.4 fL (80.0-100.0); MPV 10.9 fl. (7.2-11.1); RBC 4.49 mil/uL (4.20-5.00); RDW-CV 12.9 % (10.5-14.5); WBC 12.3 thou/uL (4.0-11.0)
[2017-11-12 07:50] LABS: CALCIUM 9.8 mg/dL (8.5-10.1); CREATININE 0.7 mg/dL (0.6-1.3); POTASSIUM 4.5 mmol/L (3.5-5.1)
[2017-11-12 09:00] VITALS: BP 135/79
--- NOTE | 2017-11-12 11:55 | NUR ---
Nutrition: Pt was asleep at time of visit, 11:30. RN stated pt is eating very well. Regular diet. Wt: 144#. MVI ordered. H/o ETOH, pancreatitis, hepatic steatosis, COPD, smoker. Physician indicated Moderate PCM - defer DX. Alb 2.9, prealb 22.7. No nutrition interventions needed at this time. Will follow weekly.
--- NOTE | 2017-11-12 15:07 | NUR ---
SW met with pt to complete initial assessment, introduce self, and SW role. Pt alert and oriented. Pt lives in a motel with her and then 2 grandsons live in the room next door. Pt interested in pt being DPOA and SW discussed SW to provide information and notarize when pt ready. Pt was previously independent with ADLs and mobility and says she does not want to have a rolling walker. Pt does not have history with HH or SNF. Pt wants to apply for SSDI; SW suggested pt go to administration office and ask for financial sales manager to begin process but also can provide information to pt on [employer] and provide a referral. SW to continue to follow to assist with safe dc planning.
[2017-11-12 20:24] VITALS: BP 122/89
--- NOTE | 2017-11-13 05:10 | NUR ---
ASSUMED CARE OF PT AT 1900 PT ALERT AND ORIENTED X 4 BUT FORGETFUL AT TIMES, VS AND ASSESSMENT STABLE. PT HAD PRN LORAZEPAM TWICE AND OXY ONCE FOR A HEAD ACHE THEN SLEPT THROUGH THE NIGHT. WILL CONTINUE PLAN OF CARE.
[2017-11-13 08:09] VITALS: BP 106/70
[2017-11-13 20:24] VITALS: BP 126/87
[2017-11-14 04:08] LABS: HEMATOCRIT 47.8 % (37.0-47.0); HEMOGLOBIN 16.2 gm/dL (12.0-15.0); MCH 36.5 pg (26.0-34.0); MCHC 33.9 g/dL (28.0-37.0); MCV 107.8 fL (80.0-100.0); MPV 10.5 fl. (7.2-11.1); RBC 4.43 mil/uL (4.20-5.00); RDW-CV 12.7 % (10.5-14.5); WBC 11.3 thou/uL (4.0-11.0)
[2017-11-14 04:30] LABS: CALCIUM 9.9 mg/dL (8.5-10.1); MAGNESIUM 1.8 mg/dL (1.8-2.4); POTASSIUM 4.3 mmol/L (3.5-5.1)
--- NOTE | 2017-11-14 05:24 | NUR ---
ASSUMED CARE OF PT AT 1900, PT ALERT AND ORIENTED X4 BUT FORGETFUL. PT PAIN MEDS ONCE AND ANXIETY MEDS TWICE THEN SLEPT THROUGH THE NIGHT. WILL CONTINUE PLAN OF CARE.
[2017-11-14 08:00] VITALS: BP 120/73
--- NOTE | 2017-11-14 18:37 | NUR ---
ASSUMED CARE AT 0730. ALERT ORIENTED PLEASANT COOPERATIVE. HX OF COPD EXCACERBATION ETOH ABUSE. TRANSFERS WITH SBA G BELT WALKER, USES CALL LIGHT APPROPRIATELY FOR ASSIST BED CHAIR ALARM FOR PT. SAFETY. PARTICIPATED IN THERAPIES. MEDICATED X 2 FOR C/O H/A PAIN WITH MIN RELIEF. TO DR FOR MEALS. APPETITE GOOD FEEDS SELF AND TAKES MEDS WITHOUT DIFFICULTY. HERE VISITING AT TIMES TODAY.
[2017-11-14 20:00] VITALS: BP 122/87
--- NOTE | 2017-11-15 05:11 | NUR ---
ASSUMED CARES AT 1920. PT ALERT AND ORIENTED. PLEASANT BUT ANXIOUS AT TIMES. C/O HEADACHE. OXY IR GIVEN FOR PAIN. LORAZEPAM GIVEN PER PT REQUEST WELL. PT FORGETFUL AND ASKED MULTIPLE TIMES WHEN COULD HAVE NEXT OXY/ATIVAN DOSING EVEN AFTER BEING TOLD. PT WOULD THEN GET ANXIOUS AND RESTLESS. SLEPT OFF AND ON BECAUSE OF THIS. TAKES PILLS WITHOUT ISSUES. MIN ASSIST [facility] GAIT BELT AND WALKER. UP TO BATHROOM NUMEROUS TIMES DURING THE NIGHT. DOES OWN CARES. WEARS PULLUPS. USING CALL LIGHT APPROPRIATELY. BED ALARM ON. WILL CONTINUE TO MONITOR.
[2017-11-15 08:25] VITALS: BP 118/91
--- NOTE | 2017-11-15 16:35 | NUR ---
ASSUMED CARE AT 0730. ALERT ORIENTED PLEASANT COOPERATIVE. HX OF OLD CVA COPD ETOH ABUSE. USES CALL LIGHT APPROPRIATELY FOR ASSISTANCE. BED CHAIR ALARM FOR PT. SAFETY. AMBULATES TO BR WITH SBA G BELT WALKER TO VOID DOES HYGEINE AND CLOTHING ADJUSTMENTS. HAS REQUESTED PRN PAIN MED X 2 FOR H/A AND LORAZEPAM FOR ANXIETY X 2. TO [address] FOR MEALS. APPETITE GOOD FEEDS SELF. HERE VISITING. NON PRODUCTIVE COUGH TODAY. TAKES MEDS WITHOUT DIFFICULTY.
[2017-11-15 20:00] VITALS: BP 123/72
--- NOTE | 2017-11-16 05:05 | NUR ---
ASSUMED CARES AT 1915. PT ALREADY IN BED SLEEPY. C/O HEADACHE. OXY IR GIVEN PER REQUEST. ATIVAN ALSO GIVEN. SHE IS MIN ASSIST WITH GAIT BELT AND WALKER. UP TO BATHROOM. DOES OWN CARES. WEARS PULLUPS. ABLE TO SLEEP FOR LONGER PERIODS TONIGHT. CALL LIGHT IN REACH AND BED ALARM ON.
[2017-11-16 08:19] VITALS: BP 107/68
--- NOTE | 2017-11-16 15:08 | NUR ---
ASSUMED CARE AT 0730. ALERT ORIENTED PLEASANT COOPERATIVE. HX OF OLD CVA COPD ETOH ABUSE. TRANSFERS WITH SBA G BELT WALKER AMBULATES TO BR TO VOID ABLE TO DO HYGEINE AND CLOTHING ADJUSTMENTS. USES CALL LIGHT APPROPRIATELY FOR ASSISTANCE. MEDICATED FOR ANXIETY X 2 AND H/A PAIN X 2 PER PT. REQUESTS. PARTICIPATING IN THERAPIES THROUGHOUT THE DAY. HAS NON PRODUCTIVE COUGH AT TIMES RECEIVING RT TXS SCHEDULED. TO DR FOR MEALS APPETITE GOOD FEEDS SELF.
--- NOTE | 2017-11-16 16:13 | NUR ---
SW met with pt to provide DPOA/AD form and pt said that she would complete later because she had a headache at the moment and just wanted to rest. SW to continue to follow.
[2017-11-16 20:39] VITALS: BP 122/95
--- NOTE | 2017-11-17 06:43 | NUR ---
ASSUMED CARES AT 1930. ALERT AND ORIENTED. COOPERATIVE. C/O HEADACHE. PAIN MEDS GIVEN REQUESTED. ATIVAN GIVEN WELL. SHE IS A MIN ASSIST WITH GAIT BELT AND WALKER. UP TO BATHROOM. DOES OWN CARES. WEARS PULLUPS. SLEPT WELL MOST OF THE NIGHT. CALL LIGHT IN REACH AND BED ALARM ON.
[2017-11-17 07:00] VITALS: BP 108/75
--- NOTE | 2017-11-17 10:00 | NUR ---
PT CALLS FREQUENTLY FOR PAIN MEDICATIONS AND ANXIETY MEDICATIONS. PT EDUCATED ON WHEN NEXT DOSE WOULD BE AVAILABLE AND THAT MEDICATIONS ARE PRN. PT STATES SHE HAS "PAIN ALL OVER". PT EDUCATED ON RISKS OF ADDICTION WITH OPIATES AND BENZOS.
--- NOTE | 2017-11-17 14:12 | NUR ---
SW called pt Mehdi at [phone] and there was no answer so SW left detailed message about team conference tomorrow and requested call back if any questions or comments. SW to continue to follow to assist with safe dc planning.
--- NOTE | 2017-11-17 16:00 | NUR ---
PT UP AMBULATING IN ROOM WITHOUT ASSIST. PT STATES SHE TURNED OFF CHAIR ALARM AND SHUT HER DOOR. PT UP WITH STEADY GAIT. EDUCATED PT ON FALL RISK. PT STATES "I'M FINE"
--- NOTE | 2017-11-17 18:18 | NUR ---
PT PARTICATES IN ALL THERAPIES. PT REQUESTS TO BE IN BED AND ENCOURAGED TO BE UP IN CHAIR WHILE NOT IN THERAPY. PAIN AND ANXIETY MEDS GIVEN ORDERED. PT HAS GOOD APPETITE AND TOLERATES PT WELL
[2017-11-17 20:10] VITALS: BP 106/81
--- NOTE | 2017-11-18 05:24 | NUR ---
ASSUMED CARE OF PT AT 1900 PT ALERT AND ORIENTED X 4 VS AND ASSESSMENT STABLE. PT HAD PAIN MEDS ONCE THEN SLEPT THROUGH THE NIGHT. WILL CONTINUE PLAN OF CARE.
[2017-11-18 08:50] VITALS: BP 88/55
--- NOTE | 2017-11-18 14:26 | PLAN ---
[address] [address] REHAB UNIT PLAN OF CARE Name: GANGA OLSON Room: [address] IN [facility].#: [id number] Admission: 11/11/17 Attend Phys: Livia Santa DO Discharge: Date of : 51 Report #: [id number] THIS REPORT FOR: //name// CC: Florian Santa OVERALL PLAN OF CARE SUBJECTIVE: This is a 61-year-old female admitted to inpatient rehabilitation to facilitate safe discharge home, status post acute hospitalization for COPD exacerbation, alcohol abuse, use and withdrawal, alterations in activities of daily living, alterations in mobility from a previous level of function of modified independent and independent with activities of daily living to her current level of function of minimum to moderate assistance with physical and occupational therapy and [id number] impairment of memory, cognition and problem solving. MEDICAL PROGNOSIS: Good. REHABILITATION PROGNOSIS: Good. Estimated length of stay is 14-18 days with discharge disposition to the home setting. Physical therapy will see the patient 60-90 minutes per day, 5 days per week, working on upper and lower body strength, balance, coordination, navigation. Occupational therapy will work with the patient 60-90 minutes per day, 5 days per week, working on upper and lower body strength, balance, coordination, navigation, bathing, dressing, and toileting. Speech language pathology will work with the patient 60-90 minutes per day, 5 days per week, working on memory, cognition, expression, social interaction. This is an overall plan of care, may change from time to time. We will team her weekly and make changes to plan of care as needed. <ELECTRONICALLY SIGNED> By: Livia Santa DO 11/18/17 1426 [id number] Santa DO /nt
--- NOTE | 2017-11-18 14:26 | H ---
[place] [address] HISTORY AND PHYSICAL Name: GANGA OLSON Room: [address] IN ..#: [id number] Admission: 11/11/17 Attend Phys: Livia Santa DO Discharge: Date of : 51 Report #: [id number] THIS REPORT FOR: //name// CC: Florian Santa DATE OF SERVICE: 11/11/2017 HISTORY OF PRESENT ILLNESS: This is a 61-year-old female admitted to inpatient rehabilitation to facilitate safe discharge home status post acute hospitalization at [facility]. She is known from previous admission as well as previous consultation. She was admitted for COPD exacerbation, alterations in activities of daily living and mobility with dementia and encephalopathy. She also has a long history of alcohol use and abuse. No significant changes since the preadmission screening. Previous level of function was modified independent to independent with activities of daily living. Current level of function is minimum assistance of 1-2 with physical and occupational therapies and mild to moderate impairment of comprehension, expression, social interaction, problem solving and memory. Estimated length of stay is 14-18 days with discharge disposition to the home setting where she lives with a supportive spouse and family that can provide supervision if needed as well as assistance. PAST MEDICAL HISTORY: Hypertension, CHF, COPD, UTI, PUD, hiatal hernia, alcohol abuse, pancreatitis, neuropathy, history of falls, anxiety, ongoing tobacco abuse, encephalopathy, altered mental status, aspiration pneumonia, history of DTs, moderate protein calorie malnutrition, hypokalemia, steatosis of the liver, hematemesis and hysterectomy. MEDICATIONS: Reviewed, reconciled and are available in the MAR. SOCIAL HISTORY: Unchanged from consult. FAMILY HISTORY: Unchanged from consult. REVIEW OF SYSTEMS: A 14-point review of systems is done and is negative except as mentioned in HPI, specifically no fever, chest pain, shortness of breath, abdominal pain or distention. PHYSICAL EXAMINATION: GENERAL: Alert, oriented, no apparent distress. VITAL SIGNS: Reviewed and are stable. HEENT: Head: Atraumatic, normocephalic. Pupils equal, round, reactive. ABDOMEN: Soft, nontender, nondistended. NEUROLOGIC: Cranial nerves 2-12 are grossly intact. No focal neuro deficits, 5/5 strength in the bilateral [place] [address] HISTORY AND PHYSICAL Name: GANGA OLSON Daphney Room: [address]#: [id number] Admission: 11/11/17 Attend Phys: Livia Santa DO Discharge: Date of : 51 Report #: [id number] SKIN: Warm and dry. No rashes or lesions noted. ASSESSMENT: 1. Chronic obstructive pulmonary disease exacerbation. 2. Multiple medical comorbidities. 3. Alterations in activities of daily living, mobility, and memory. PLAN: 1. Admission to inpatient rehabilitation. 2. PT, OT, speech, language, case management, nursing and HIMS to make evaluations and recommendations. 3. We will team weekly and make changes to plan of care as needed. Medications were reviewed, reconciled by myself and are available in the MAR. <ELECTRONICALLY SIGNED> By: Livia Santa DO 11/18/17 1426 [id number] Santa DO /nt
--- NOTE | 2017-11-18 17:33 | NUR ---
Following for d/c planning needs. Reviewed chart. Called pt's and left message for him to return call. Plan is to reteam next week, with tentative d/c arranged for 11/27.
--- NOTE | 2017-11-18 17:58 | NUR ---
PATIENT UP TO CHAIR FOR DINNER. PATIENT IS UP MOD I IN ROOM. PATIENT USES WALKER. PATIEN THAS SHUFFLING GAIT BUT IS STEADY. PATIENT IS IMPLUSIVE AT TIMES BUT IS CALM AND COOPERATIVE. PATIENT HAS GOOD APPETITE. PATIENT HAS COMPLAINTS OF NECK/HEAD PAIN, TREATED ADEQUATELY WITH MEDICATION. PATIENT DENIES ANY NEEDS AT THIS TIME. WILL CONTINUE TO MONITOR.
[2017-11-18 19:30] VITALS: BP 121/80
--- NOTE | 2017-11-19 06:06 | NUR ---
ASSESSMENT COMPLETE. PT SLEPT THROUGH THE NIGHT, PRN PAIN MEDICATION GIVEN NEEDED. PT IS ON ROOM AIR WITH ADEQUATE SATS. PT MOD I IN BEDROOM PER ORDER. PT USES WALKER. SEE ASSESSMENT AND VITALS FOR OTHER DETAILS. CALL LIGHT WITHIN REACH, WILL CONTINUE PLAN OF CARE
[2017-11-19 08:32] VITALS: BP 102/60
--- NOTE | 2017-11-19 14:22 | NUR ---
SW attempted to call pt and again no answer, SW left message to follow up and requested call back with any questions or comments. ASIA met with pt who completed DPOA on Friday 11/17, copy in pt chart, original and a copy with pt. Plan to Reteam; possibly dc 11/27? SW to continue to follow to assist with safe dc planning.
--- NOTE | 2017-11-19 19:50 | NUR ---
ASSUMED CARE THIS AM. A/O, UP AD JUAREZ, DOES USE WALKER WHEN WALKING DISTANCES. PATIENT REQUESTING NARCOTIC PAIN MEDICATION AND ANXIOLYTIC MEDICATION AT THE EXACT MOMENT WHEN ORDERS ALLOW ADMINISTRATION. NO DISTRESS NOTED THIS SHIFT. SLOW PROGRESSION WITH THERAPIES. INDEPENDENT WITH BED MOBILITY, TRANSFERS, DRESSING, TOILETING, EATING, DRESSING. CALL LIGHT IN REACH, CONT POC.
[2017-11-19 20:00] VITALS: BP 104/86
--- NOTE | 2017-11-20 05:05 | NUR ---
PATIENT SLEPT WELL DURING THIS SHIFT. PT REQUESTED LORAZEPAM AND OXYCODONE X1 DURING THIS SHIFT. PT IS UP TO BATHROOM WITH USE OF WALKER. PT DENIES NEEDS AT THIS TIME. FREQUENTLY USED ITEMS AND AND CALL LIGHT WITHIN REACH. SIDERAILS UPX2; WILL CONTINUE TO MONITOR.
[2017-11-20 07:00] VITALS: BP 116/73
--- NOTE | 2017-11-20 18:33 | NUR ---
UP AD JUAREZ IN ROOM, PAIN CONTROLLED WITH MEDICATION, ARLENE NEB TREATMENTS, DOES REQUIRE BENZOS AND OPOIDS SOON ORDERS ALLOW, NO OBJECTIVE DISTRESS NOTED. CONTINENT OF BOWEL/BLADDER, EAGER FOR DISCHARGE. CALL JAGDISH ZHOU, CONT POC.
[2017-11-20 20:18] VITALS: BP 127/82
--- NOTE | 2017-11-21 02:10 | NUR ---
ASSUMED CARE AT 1929. PATIENT S/P COPD EXACERBATION. MOD I IN ROOM. VOIDS PER TOILET. TAKES PILLS WHOLE WITH WATER. TURNS SELF. DENIS TOOK OXYCODONE LAST AT 1904 WHICH IS Q6H PRN. CAME TO NURSE STATION AT 2109 ASKING IF IT WAS TIME FOR HER ATIVAN. IT WAS. PATIENT TOOK ATIVAN AT 2114, WHICH IS Q4H PRN. AT 2329 PATIENT C/O THAT SHE NEEDED HER ATIVAN. THIS NURSE REMINDED HER THAT SHE TOOK IT AT 2114 BUT PATIENT DID NOT REMEMBER THIS DESPITE CUEING THAT HER WAS HERE WHEN SHE TOOK IT AND THIS NURSE WROTE TIME GIVEN ON WHITE BOARD. PATIENT RETURNED TO SLEEP AND OF 199 IS SOUND ASLEEP WITH FAINT SNORING RESPIRATIONS NOTED ON 199 ROUNDS. HOURLY ROUNDS CONTINUE. CALL LITE IN REACH.
--- NOTE | 2017-11-21 02:41 | NUR ---
PATIENT USED CALL LITE APPROPRIATELY TO C/O THAT SHE WANTED HER "PILLS" THIS NURSE WENT TO ROOM TO CLARIFY WHICH MEDS, AND OBSERVED PATIENT WALKING BACK FROM BATHROOM WITHOUT HER WALKER. WHEN ASKED ABOUT THIS PATIENT REPLIED THAT "IF I WAS WALKING OUT OF MY ROOM I NEED MY WALKER." THIS NURSE EDUCATED PATIENT THAT WE WANT TO PREVENT FALLS AND A WALKER WOULD BE SAFER, ESPECIALLY AT NIGHT. PATIENT REFUSED TO USE WALKER. TOOK NERVE PILLS. WHITEBOARD UPDATED. HOURLY ROUNDS CONTINUE, CALL LITE IN REACH. MOD I IN ROOM.
--- NOTE | 2017-11-21 05:36 | NUR ---
SLEPT MOST OF THE NIGHT. AWOKE AND REQUSTED ATIVAN, SEE MAR. HAS NOT ASKED FOR PAIN MEDS AT THIS TIME SINCE HS. SEE MAR. CONTINUES ON MOD I IN ROOM. HOURLY ROUNDS CONTINUE. CALL LITE IN REACH.
[2017-11-21 07:30] VITALS: BP 97/69
--- NOTE | 2017-11-21 18:51 | NUR ---
ASSUMED CARE AT 0730 PATIENT ALERT/ORIENTED, FORGETFUL, UP MOD I IN ROOM PER ORDERS, BUT OT WAS QUESTIONING THIS ORDER STATES PATIENT NOT SAFE IN ROOM. PATIENT STATES SHE HAS BEEN MOD I FOR A COUPLE OF DAYS AND WILL NOT CALL FOR ASSISTANCE, PARTICIPATED IN THERAPIES TODAY, REFUSING TO DO SOME CARES WITH OT, BUT DID WORK WITH PT. REFUSED TO GO TO DINING ROOM FOR MEALS TODAY, AT BEDSIDE. CALL LIGHT IN REACH, HOURLY ROUNDING COMPLETED.
[2017-11-21 20:22] VITALS: BP 108/69
[2017-11-22 04:46] LABS: HEMOGLOBIN 15.2 gm/dL (12.0-15.0); MCH 35.9 pg (26.0-34.0); MCHC 33.8 g/dL (28.0-37.0); MCV 106.3 fL (80.0-100.0); MPV 11.9 fl. (7.2-11.1); RBC 4.23 mil/uL (4.20-5.00); RDW-CV 12.6 % (10.5-14.5)
[2017-11-22 04:52] LABS: ALBUMIN 2.8 g/dL (3.4-5.0); CALCIUM 9.3 mg/dL (8.5-10.1); MAGNESIUM 1.8 mg/dL (1.8-2.4); POTASSIUM 4.5 mmol/L (3.5-5.1); TOTAL BILIRUBIN 0.2 mg/dL (<0.1-1.0); TOTAL PROTEIN 5.7 g/dL (6.4-8.2)
--- NOTE | 2017-11-22 06:55 | NUR ---
PATIENT SLEPT PART OF THE NIGHT. PATIENT REMAINS MOD I IN THE ROOM. PATIENT WAS GIVEN XANAX AND OXY IR NEEDED. WILL CONTINUE TO MONITOR.
[2017-11-22 08:49] VITALS: BP 105/73
--- NOTE | 2017-11-22 14:06 | NUR ---
ASSUMED CARE OF PT AT 0730. PT CONTINUES TO BE A&O X4 CAM AND COOPERATIVE. PT UP AD JUAREZ IN HER ROOM. SHE HAS BEEN VOIDING VIA THE TOILET INDEPENDENTLY. PT HAS A GOOD APPETITE AND EATS GREATER THAN 50% OF HER MEALS. SHE ALSO HAS SNACKS IN HER ROOM AND IS OFTEN EATING SOMETHING WHEN THIS NURSE ENTERS HER ROOM. SHE IS CURRNELTY IN HER ROOM EATING SOME LAYS PLAIN CHIPS, BUT HAS OTHER NACKS AT BESIDE SUCH GRAPES. C/O PAIN HAVE BEEN EFFECTIVELY REDUCED TO TOLERABLE LEVELS WITH PRN PO PAIN MEDICATION, AND C/O ANXIETY HAVE BEEN EFFECTIVELY CONTROLLED WITH PRN PO ANXIETY MEDICATIONS PER MAR. PT VSS ON ROOM AIR, NURSING WILL CONTINUE TO MONITOR.
[2017-11-22 19:00] VITALS: BP 161/83
--- NOTE | 2017-11-22 22:12 | NUR ---
ASSUMED CARE AT 193. PATIENT RESTING IN BED. MOD I IN ROOM. HERE FOR A WHILE. C/O HEADACHE AT 1952, HAD OXY AT 190, OFFERED APAP WHICH SHE REFUSED. TOOK OTHER MEDS WHOLE WITH WATER. SEE SEP. NO C/O ANXIETY, FELL ASLEEP BY 2099. HOURLY ROUNDS CONTINUE. CALL LITE IN REACH.
--- NOTE | 2017-11-23 06:11 | NUR ---
SLEPT MOST OF THE NIGHT. RECEIVED ATIVAN ONCE THROUGH THE SHIFT. SEE MAR. NO REQUESTS FOR PAIN MEDS THUS FAR THIS SHIFT. TURNS SELF AND OBSERVED ON ROUNDS TO BE SLEEPING ON HER SIDES. REMAINS ON MOD I IN ROOM. HOURLY ROUNDS CONTINUE. CALL LITE IN REACH.
[2017-11-23 08:07] VITALS: BP 118/74
--- NOTE | 2017-11-23 10:08 | NUR ---
SW attempted to contact pt and again no answer, SW left detailed message discussing team conference and dc planning. Reteam and possible dc soon; 11/27. SW to continue to follow to assist with safe dc planning.
--- NOTE | 2017-11-23 17:56 | NUR ---
RESUMED CARE THIS AM. A/O X 4, UP AD JUAREZ, NO WALKER, NO SUPERVISION NEEDED. REPORTS UNRELENTING PAIN WHEN ASKED, PRESENTS WITH RELAXED FACE CALM BREATHING PATTERN. CONT TO REQUIRE PRN BENZO AND OPIOID MEDICATION AT THE EARLIEST TIME AVAILABLE PER ORDERS. INDEPENDENT WITH ALL ADL, TOLERATING REPEATED WALKS FROM ROOM DOWN TO FIRST FLOOR, OUT TO COURTYARD, AROUND. SOMETHING VAGUE REPORTED TO DR. SARKAR ABOUT 'SPOTS' IN FIELD OF VISION, INTERMITTENT, AT TIMES, COMING AND GOING WITH THE WIND. CALL LIGHT IN REACH. CONT POC.
[2017-11-23 21:22] VITALS: BP 122/85
--- NOTE | 2017-11-24 06:13 | NUR ---
ASSUMED CARE AT 1915. PT ALERT AND ORIENTED. PLEASANT. BUT ANXIOUS WHEN COULDN'T HAVE PAIN MEDS FOR HEADACHE IT WAS TOO SOON. ATIVAN GIVEN. TAKES PILLS WHOLE WITHOUT ISSUES. SHE IS LUIS IN RM. UP TO BATHROOM. DOES OWN CARES. SLEPT OFF AND ON. CALL LIGHT IN REACH.
[2017-11-24 08:45] VITALS: BP 131/82
--- NOTE | 2017-11-24 16:38 | NUR ---
ASIA and Dr Sanat met with pt to review team conference summary and discuss pt to dc home with family on Monday 11/27. Pt okay with plan. ASIA called to speak with pt about plan and to schedule family training; pt did not answer and SW left message requesting call back. ASIA also mentioned to pt to have pt call SW to discuss plan and set time for family training.
--- NOTE | 2017-11-24 18:27 | NUR ---
PT MOD I IN ROOM AND CALLS FOR ASSIST NEEDS WITH STEADY GAIT AND SBA IN HALLS.PT REPORTS VOIDING WELL AND NO BM.PRN FOR PAIN AND ANXIETY GIVEN REQUESTED WITH GOOD EFFECT THOUGH PT COMPLAITS OF HEADACHES WITH AWARE.PT PROGRESSES TOWARDS GOALS AND HOURLY ROUNDING CONTINUES.
[2017-11-24 19:30] VITALS: BP 105/75
--- NOTE | 2017-11-25 05:52 | NUR ---
ASSUMED PATIENT CARE AT 1900. PATIETN ALERT AND ORIENTED TIMES FOUR. COMPLAINTS OF PAIN AND ANXIETY NOTED THROUGH THE NIGHT, CONTROLLED WITH ORAL MEDICATIONS. DID NOT NOTE PATIENT TO BE OUT OF BED. RESTED THROUGH THE NIGHT AND CALLED OUT APPROPRIATELY. CABLE INSTALLATION MANAGER AND HOURLY ROUNDING COMPLETED SOCUMENETED
[2017-11-25 08:00] VITALS: BP 97/65
--- NOTE | 2017-11-25 17:09 | NUR ---
AM ASSESSMENT AND VITAL SIGNS COMPLETED DOCUMENTED. PT WASN'T VERY COOOPERATIVE WITH THERAPISTS TODAY, STATES SHE KNOWS HOW TO DO THIS STUFF AND DOESN'T NEED EVERYONE TELLING HER WHAT TO DO. I SPOKE WITH HER AT LENGTH, DISCUSSED DISCHARGE GOALS AND THAT WE HAVE HER DO THESE THINGS TO EVALUATE HER READINESS TO GO HOME. PT VERBALIZES UNDERSTANDING AND STATES SHE WILL BE COOPERATIVE TOMMORRROW. MOD I IN ROOM. PRN OXY AND LORAZEPAM GIVEN REQUESTED BY PATIENT.
[2017-11-25 20:21] VITALS: BP 101/61
--- NOTE | 2017-11-26 05:05 | NUR ---
Patient rested in bed, patient walk to the bathroom stand by. Patient A and O times four. Patient can be forgetful, patient place on bed alarm due to poor vision without glassess. Patient recieved to ativan during shift. No acute changes, patient did not show signs of distress. Paient intake was well, no new dressing or grooming done.
[2017-11-26 08:10] VITALS: BP 118/80
--- NOTE | 2017-11-26 12:06 | NUR ---
SW attempted to call pt again and left another message regarding pt dc home with family assist tomorrow, Monday 11/27 and scheduling family training. SW told pt about need for family training and to try to get message to pt family to contact SW or schedule time to be available to do family training. SW to continue to follow to assist with safe dc planning.
--- NOTE | 2017-11-26 16:13 | NUR ---
AM ASSESSMENT AND VITAL SIGNS COMPLETED DOCUMENTED. PT CONTINUES TO BE MOD I IN ROOM. ALL THERAPY SESSIONS COMPLETED WITHOUT COMPLAINTS TODAY. GOOD PROGRESS TOWARD DISCHARGE GOALS. FALL PRECAUTIONS AND HOURLY ROUNDING CONTINUE.
--- NOTE | 2017-11-26 18:46 | NUR ---
PT CONTINUES TO BE PLEASANT AND COOPERATIVE, HAPPY TO BE GOING HOME TOMMORROW. PRN MEDICATIONS GIVEN FOR ANXIETY AND PAIN.
[2017-11-26 20:17] VITALS: BP 106/80
--- NOTE | 2017-11-26 22:33 | NUR ---
ASSUMED CARE AT 1930. PATIENT S/P COPD EXACERBATION. MOD I IN ROOM. VISITED UNTIL AROUND 1999. PATIENT TURNS SELF EASILY IN BED. AWAKENED FOR MEDS, INSISTED ON TAKING ATIVAN 2 MG, SEE SEP. VOIDS PER TOILET. TAKES PILLS WHOLE WITH WATER. C/O HEADACHE, BUT IT IS TOO SOON FOR PAIN MEDS, PATIENT SATISFIED WITH TAKING ATIVAN INSTEAD. HOURLY ROUNDS CONTINUE. CALL LITE IN REACH.
[2017-11-27] MEDS ORDERED: TYLENOL325 MG PO (01:46)
--- NOTE | 2017-11-27 06:34 | NUR ---
SLEPT MOST OF THE NIGHT. AWOKE AROUND 2230 WANTING MORE ATIVAN BUT IT WAS TOO EARLY. OBSERVED SLEEPING WITH SNORNING RESPS ON HOURLY ROUNDS AFTER THAT. AROUND 0530 PATIENT CALLED ASKING WHY HER MEDS WERE TAKEN AWAY. THIS NURSE INSTRUCTED PATIENT THAT HER MEDS WERE NOT TAKEN AWAY, BUT SINCE SHE WAS SLEEPING SHE WAS NOT AWAKENED TO ASK IF SHE NEEDED IT. PATIENT TOOK ATIVAN AT THAT TIME. SEE SEP. HOURLY ROUNDS CONTINUE. CALL LITE IN REACH. MOD I IN ROOM CONTINUES.
[2017-11-27 08:17] VITALS: BP 102/83
[2017-11-27 10:41] VITALS: BP 102/83
--- NOTE | 2017-11-27 10:42 | NUR ---
Pt to dc home today with family assistance. Pt and possibly grandson as well to complete family training prior to pt dc. SW discussed HH services to follow with pt and pt was agreeable and stated preference for [facility]. ASIA called and spoke with Evangelina with [facility] at [phone] and faxed referral and orders and med list to [phone].
--- NOTE | 2017-11-27 13:25 | NUR ---
ASSUMMED CARE OF PT AT 0730, PT ALERT, IMPULSIVE AT TIMES, WANTS TO DISCHARGE NOW, MOD I AND TOLERATING WELL, TAKING FOOD AND FLUIDS WELL, PT COMPLAINS OF HEADACHE OF "10" , MEDICATED PER ORDERS, PT ALSO REQUESTS ATIVAN FOR HER ANXIETY, MEDICATED PER ORDER, PT PARTICIPATED IN THERAPIES THIS AM, ORDERS FOR DISCHARGE OBTAINED, PT SPOUSE HAD FAMILY OT TRAINING, DISCUSSED HOME MEDICATIONS, FOLLOW UP APPT WITH DR MCKEON, FALL PRECAUTIONS, WHEN TO CALL PHYSICIAN, DIET AND HOME HEALTH, PT WANTS TO TALK TO DR MCKEON ABOUT NEBULIZER TX THAT WAS ORDERED FOR DISCHARGE, I ALSO TOLD HER TO DISCUSS WITH HOME HEALTH NURSE, EXPLAINED THAT [facility] AND ATIVAN CALLED INTO PTS PHARMACY BUT THEY NEEDED TO TAKE HARD COPY TO PHARMACY FOR OXY MEDCIATION, DISCHARGE PACKET GIVEN TO SPOUSE, PT DISCHARGED TO MAIN ENTRANCE WITH BELONGINGS PER WHELLCHAIR.
--- NOTE | 2018-02-10 11:22 | D ---
[facility] [address] [place] [address] DISCHARGE SUMMARY Name: GANGA OLSON Room: [address] IN M.R.#: [id number] Admission: 11/11/17 Attend Phys: Livia Santa DO Discharge: 11/27/17 Date of : 51 Report #: [id number] THIS REPORT FOR: //name// CC: Florian Santa DATE OF SERVICE: 11/27/2017 HISTORY: The patient is a 62-year-old female admitted to inpatient rehabilitation to facilitate safe discharge home, chronic obstructive pulmonary disease exacerbation, limited mobility, dementia, encephalopathy. DISCHARGE DISPOSITION: To home with home health PT, OT and nursing. She does have family to support her. It was determined that she needed 24/7 supervision at least at the beginning as she is quite impulsive and has several safety issues; however, she did progress in her therapies during her stay here. Her and son were both very supportive. FOLLOWUP: She will follow with her primary care physician within one week. Notifications for physician were given. DIET: She will continue on a heart healthy diet. Limitations include 24/7 supervision at least initially as well as fall precautions. MEDICATIONS: Reviewed and reconciled by myself and are available in the MAR. Anything that needed a prescription was given for one month's time. DISCHARGE PHYSICAL EXAMINATION: GENERAL: Alert, oriented, in no apparent distress. VITAL SIGNS: Reviewed and are stable. HEENT: Atraumatic, normocephalic. Pupils are equal, round, reactive. ABDOMEN: Soft, nontender, nondistended. NEUROLOGIC: Cranial nerves 2-12 grossly intact with no focal neuro deficits, 5/5 strength in bilateral upper and lower extremities. SKIN: Warm and dry. No rashes or lesions noted. <ELECTRONICALLY SIGNED> By: Livia Satna DO 02/10/18 [id number] Santa DO /nt
== END 2017-11-27 13:15 | disposition home or self-care (01) | DRG 70 ==
LOC: M.REH 15:01
PROVIDERS: Family Medicine; ADMIT Physical Medicine & Rehabilitation
DX: G93.40 Encephalopathy, unspecified (principal); J69.0 Pneumonitis due to inhalation of food and vomit; J44.1 Chronic obstructive pulmonary disease with (acute) exacerbation; F10.231 Alcohol dependence with withdrawal delirium; E44.0 Moderate protein-calorie malnutrition; I11.0 Hypertensive heart disease with heart failure; I50.9 Heart failure, unspecified; F41.9 Anxiety disorder, unspecified; F10.229 Alcohol dependence with intoxication, unspecified; F17.210 Nicotine dependence, cigarettes, uncomplicated; F03.90 Unspecified dementia, unspecified severity, without behavioral disturbance, psychotic disturbance, mood disturbance, and anxiety; G62.9 Polyneuropathy, unspecified; R53.81 Other malaise; R26.9 Unspecified abnormalities of gait and mobility; D75.89 Other specified diseases of blood and blood-forming organs; Z68.24 Body mass index [BMI] 24.0-24.9, adult; Z87.440 Personal history of urinary (tract) infections; Z87.11 Personal history of peptic ulcer disease; Z90.710 Acquired absence of both cervix and uterus; Z88.8 Allergy status to other drugs, medicaments and biological substances; Z79.899 Other long term (current) drug therapy